=== PATIENT | female | born 1985 | race American Indian/Alaskan Native ===

== ENCOUNTER 2017-02-24 20:04 | Emergency (ER) | payer MEDICAID ==
[~2017-02-24] VITALS: Ht 170.2 cm; Wt 107.5 kg
[~2017-02-24 20:04] MED LIST: IBUP-1222 PO; OXYC-302 PO
[2017-02-24 20:27] VITALS: BP 136/89
[2017-02-24] MEDS ORDERED: IBUPROFEN 200 MG TABLET ONE (20:56)
[2017-02-24] MEDS ORDERED: IBUPROFEN 200 MG TABLET PO ONE (21:00)
== END 2017-02-24 22:24 | disposition home or self-care (01) ==
LOC: ED 22:23
DX: S62.647A Nondisplaced fracture of proximal phalanx of left little finger, initial encounter for closed fracture (principal); W01.0XXA Fall on same level from slipping, tripping and stumbling without subsequent striking against object, initial encounter; Y93.89 Activity, other specified; Y92.89 Other specified places as the place of occurrence of the external cause; Y99.8 Other external cause status
CPT/HCPCS: 29125

== ENCOUNTER 2019-05-20 16:04 | Inpatient (IN) | payer MEDICAID, OTHER ==
[~2019-05-20] VITALS: Ht 170.2 cm; Wt 115.8 kg
--- NOTE | 2019-05-20 17:05 | NUR ---
FROM LOBBY TO ROOM NOW
--- NOTE | 2019-05-20 17:11 | NUR ---
PT ARRIVED TO ROOM 18 AMBULATORY WITH FAMILY. PT DRESSED IN GOWN, ATTACHED TO MONITOR. PT C/O ABDOMINAL AND BACK/FLANK PAIN. PT ALSO STATES "I SWALLOWED [employer] WATER ON SUNDAY AND I HAVE BEEN NAUSEOUS AND VOMITTING SINCE." PT AOO X 4, MUCOUS MEMBRANES MOIST, ROOM AIR, VSS, RESTING IN GURNEY WITH SIDERAILS X [address], CALL LIGHT WITHIN REACH, FALL PRECAUTIONS IN PLACE.
--- NOTE | 2019-05-20 17:12 | NUR ---
PT DEMANDING BLANKET, SHOUTING LOUDLY, VERY RESTLESS IN BED, ASKING FAMILY MEMBER TO ASK ANOTHER STAFF MEMBER TO GET A BLANKET BECAUSE "YOU AREN'T DOING IT FAST ENOUGH."
[2019-05-20] MEDS ORDERED: DIPHENHYDRAMINE 50 MG/ML, 1ML IVPush ONE (17:30)
[2019-05-20] MEDS ORDERED: SODIUM CHLORIDE FLUSH 10ML SYR IVF ONE (17:30)
[2019-05-20] MEDS ORDERED: ONDANSETRON 2MG/ML, 2ML IVPush ONE (17:30)
[2019-05-20] MEDS ORDERED: FAMOTIDINE 20 MG/2 ML IVP ONE (17:30)
--- NOTE | 2019-05-20 17:30 | NUR ---
PIV ESTABLISHED, LABS DRAWN.
[2019-05-20 17:50] LABS: BASOPHILS # (AUTO) 0.02 x10^3/uL (0-0.1); BASOPHILS % (AUTO) 0 % (0-1); EOSINOPHILS % (AUTO) 0 % (1-7); LYMPHOCYTES # (AUTO) 2.08 x10^3/uL (1-3.4); LYMPHOCYTES % (AUTO) 22 % (22-44); MD NO; MEAN CORPUSCULAR HEMOGLOBIN 36.6 pg (27.0-34.8); MEAN CORPUSCULAR VOLUME 107.7 fL (80-100); MEAN PLATELET VOLUME 8.5 fL (7.4-10.4); MONOCYTES # (AUTO) 0.72 x10^3/uL (0.2-0.8); MONOCYTES % (AUTO) 7 % (2-9); NEUTROPHILS # (AUTO) 6.83 x10^3/uL (1.8-6.8); NEUTROPHILS % (AUTO) 71 % (42-75); PLATELET COUNT 306 x10^3/uL (130-400); RED BLOOD COUNT 4.42 x10^6/uL (3.82-5.3); RED CELL DISTRIBUTION WIDTH 15.2 % (9.6-15.2)
[2019-05-20 18:00] LABS: ALANINE AMINOTRANSFERASE 30 U/L (12-78); ANION GAP 12 mmol/L (5-15); CALCIUM 9.3 mg/dL (8.5-10.1); CHLORIDE 99 mmol/L (98-107); CREATININE 0.88 mg/dL (0.55-1.02)
[2019-05-20 18:04] LABS: ALKALINE PHOSPHATASE 93 U/L (45-117); BILIRUBIN,TOTAL 1.7 mg/dL (0.2-1.0); TOTAL PROTEIN 7.7 g/dL (6.4-8.2)
[2019-05-20] MEDS ORDERED: FAMOTIDINE 20 MG/2 ML ONE (18:08)
[2019-05-20] MEDS ORDERED: DIPHENHYDRAMINE 50 MG/ML, 1ML ONE (18:08)
[2019-05-20] MEDS ORDERED: ONDANSETRON 2MG/ML, 2ML ONE (18:08)
--- NOTE | 2019-05-20 18:16 | NUR ---
PT AMBULATORY TO RESTROOM WITH STEADY GAIT FOR UA.
[2019-05-20 18:48] LABS: MICROSCOPIC AUTO
[2019-05-20] MEDS ORDERED: MAGNESIUM OXIDE 400 MG TABLET ONE (18:50)
[2019-05-20] MEDS ORDERED: POTASSIUM CHLORIDE 20 MEQ TAB.ER.PRT ONE (18:50)
[2019-05-20 18:53] LABS: CULTURE INDICATED? YES
--- NOTE | 2019-05-20 18:54 | NUR ---
PT MEDICATED PER MD ORDER.
[2019-05-20] MEDS ORDERED: MAGNESIUM OXIDE 400 MG TABLET PO ONE (19:00)
[2019-05-20] MEDS ORDERED: POTASSIUM CHLORIDE 10% 40 MEQ/30 ML UDC PO ONE (19:00)
[2019-05-20] MEDS ORDERED: MAGNESIUM OXIDE 400 MG TABLET PO SCH (19:00)
[2019-05-20] MEDS ORDERED: POTASSIUM CHLORIDE 20 MEQ TAB.ER.PRT PO ONE (19:00)
[2019-05-20] MEDS ORDERED: METOCLOPRAMIDE 5 MG/ML, 2ML ONE (19:07)
--- NOTE | 2019-05-20 19:10 | NUR ---
THIS RN CALLED TO ROOM, PT VOMITTING. PA NOTIFIED, PLAN TO ADMIT. PT UPDATED ON POC AND AGREEABLE TO ADMISSION.
--- NOTE | 2019-05-20 19:18 | NUR ---
MEDICATION REQUESTED FROM PHARMACY.
[2019-05-20] MEDS ORDERED: POTASSIUM CHLORIDE 40 MEQ in SODIUM CHLORIDE 0.9% 1,000 ML IV ONE (19:29)
[2019-05-20] MEDS ORDERED: METOCLOPRAMIDE 5 MG/ML, 2ML IVPush ONE (19:30)
[2019-05-20] MEDS ORDERED: POTASSIUM CHLORIDE 40 MEQ in SODIUM CHLORIDE 0.9% 500 ML IV ONE (19:30)
--- NOTE | 2019-05-20 20:04 | NUR ---
PT TAKEN TO CT
[2019-05-20] MEDS ORDERED: OMNIPAQUE 350 MG/ML, 100ML BOTTLE ONE (20:10)
[2019-05-20] MEDS ORDERED: MAGNESIUM SULFATE 1 GM/2 ML IVPush ONE (20:30)
[2019-05-20] MEDS ORDERED: MAGNESIUM SULFATE PMX 2GM/50ML 50 ML ONE (20:46)
--- NOTE | 2019-05-20 20:58 | NUR ---
PT MEDICATED PER MD ORDER, RESTING IN [facility]. SM AT BEDSIDE.
[2019-05-20] MEDS ORDERED: SODIUM CHLORIDE FLUSH 10ML SYR IVF PRN (21:00)
[2019-05-20] MEDS ORDERED: MAGNESIUM SULFATE 1 GM in SODIUM CHLORIDE 0.9% 50 ML IV ONE (21:00)
[2019-05-20] MEDS ORDERED: ACETAMINOPHEN 325 MG TABLET PO PRN (21:30)
[2019-05-20] MEDS ORDERED: DOCUSATE 100 MG CAPSULE PO PRN (21:30)
[2019-05-20] MEDS ORDERED: DIPHENHYDRAMINE 50 MG/ML, 1ML IVPush PRN (21:30)
[2019-05-20] MEDS ORDERED: ENOXAPARIN 40 MG/0.4 ML SQ SCH (21:30)
[2019-05-20 22:15] LABS: AMPHETAMINE SCREEN, URINE Negative (Negative); BARBITURATE SCREEN, URINE Negative (Negative); BENZODIAZEPINE SCREEN, URINE Negative (Negative); CANNABINOID SCREEN, URINE Positive (Negative); COCAINE SCREEN, URINE Negative (Negative); METHADONE SCREEN, URINE Negative (Negative); OPIATE SCREEN, URINE Positive (Negative)
[2019-05-20] MEDS: PANTOPRAZOLE 40 MG IV IVPush SCH (22:26)
[2019-05-20 23:12] VITALS: BP 154/105
[2019-05-21] MEDS: NS + 40MEQ KCL 1,000 ML IV SCH ×2 (00:55→09:10)
[2019-05-21 02:25] VITALS: BP 106/60
[2019-05-21 05:24] LABS: ANION GAP 6 mmol/L (5-15); CALCIUM 8.2 mg/dL (8.5-10.1); CHLORIDE 108 mmol/L (98-107); CREATININE 0.79 mg/dL (0.55-1.02)
[2019-05-21 05:31] LABS: BASOPHILS # (AUTO) 0.02 x10^3/uL (0-0.1); BASOPHILS % (AUTO) 0 % (0-1); EOSINOPHILS # (AUTO) 0.01 x10^3/uL (0-0.4); EOSINOPHILS % (AUTO) 0 % (1-7); LYMPHOCYTES # (AUTO) 1.69 x10^3/uL (1-3.4); LYMPHOCYTES % (AUTO) 23 % (22-44); MD NO; MEAN CORPUSCULAR HEMOGLOBIN 35.8 pg (27.0-34.8); MEAN CORPUSCULAR HGB CONC 33.6 g/dL (32.4-35.8); MEAN CORPUSCULAR VOLUME 106.6 fL (80-100); MEAN PLATELET VOLUME 8.1 fL (7.4-10.4); MONOCYTES % (AUTO) 8 % (2-9); NEUTROPHILS # (AUTO) 4.93 x10^3/uL (1.8-6.8); NEUTROPHILS % (AUTO) 68 % (42-75); PLATELET COUNT 261 x10^3/uL (130-400); RED BLOOD COUNT 4.23 x10^6/uL (3.82-5.3); RED CELL DISTRIBUTION WIDTH 15.1 % (9.6-15.2)
[2019-05-21 07:40] VITALS: BP 131/88
[2019-05-21] MEDS: PANTOPRAZOLE 40 MG IV IVPush SCH (09:10)
[2019-05-21 10:58] LABS: THYROID STIMULATING HORMONE 0.876 mIU/L (0.358-3.740)
[2019-05-21 12:40] VITALS: BP 115/75
[2019-05-21] MEDS ORDERED: ERGO500017 PO (14:09)
== END 2019-05-21 17:30 | disposition home or self-care (01) | DRG 392 ==
LOC: ED 19:31 → EDIP 22:20 → 3NE 22:30
PROVIDERS: ADMIT Family Medicine; ATTEND Family Medicine
DX: K31.89 Other diseases of stomach and duodenum (principal); Z68.41 Body mass index [BMI] 40.0-44.9, adult; R11.2 Nausea with vomiting, unspecified; D75.89 Other specified diseases of blood and blood-forming organs; E55.9 Vitamin D deficiency, unspecified; E66.01 Morbid (severe) obesity due to excess calories; E86.0 Dehydration; E87.6 Hypokalemia; F12.90 Cannabis use, unspecified, uncomplicated; K43.9 Ventral hernia without obstruction or gangrene; M51.37 Other intervertebral disc degeneration, lumbosacral region; Z87.891 Personal history of nicotine dependence; A08.4 Viral intestinal infection, unspecified
CPT/HCPCS: 36415; 99285; J3490; 74177; 80048; 80053; 80307; 81001; 82306; 82607; 83690; 83735; 84132; 84443; 84703; 85025; 87086; 96365; 96375; G0378; J1650; J2405; J3475; J3480; Q9967; C9113; J1200; J2765; J7040

== ENCOUNTER 2020-06-13 19:56 | Emergency (ER) | payer MEDICAID ==
[~2020-06-13] VITALS: Ht 170.2 cm; Wt 116.2 kg
[~2020-06-13 19:56] MED LIST changes: +ERGO500017 PO
[2020-06-13] MEDS ORDERED: OXYcodone/APAP 5/325MG TABLET ONE (20:26)
[2020-06-13] MEDS ORDERED: KETOROLAC 60 MG/2 ML ONE (20:26)
[2020-06-13] MEDS ORDERED: KETOROLAC 30 MG/1 ML IM ONE (20:30)
[2020-06-13] MEDS ORDERED: OXYcodone/APAP 5/325MG TABLET PO ONE (20:30)
--- NOTE | 2020-06-13 21:38 | NUR ---
PT REPORTS PAIN IMPROVEMENT. UP FOR RECHECK AT THIS TIME
--- NOTE | 2020-06-13 21:55 | NUR ---
REPORT FROM KIMBERLI HANSON.
[2020-06-13 22:19] VITALS: BP 138/102
== END 2020-06-13 22:37 | disposition home or self-care (01) ==
LOC: ED 22:35
DX: S63.521A Sprain of radiocarpal joint of right wrist, initial encounter (principal); S40.011A Contusion of right shoulder, initial encounter; S50.01XA Contusion of right elbow, initial encounter; W18.30XA Fall on same level, unspecified, initial encounter; Y93.89 Activity, other specified; Y92.89 Other specified places as the place of occurrence of the external cause; Y99.8 Other external cause status
CPT/HCPCS: 29240; 73030; 73080; 73110; 96372; 99284; J1885

== ENCOUNTER 2020-07-19 09:30 | Emergency (ER) | payer MEDICAID ==
[~2020-07-19] VITALS: Ht 170.2 cm; Wt 112.9 kg
--- NOTE | 2020-07-19 10:20 | NUR ---
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 NADN. PT AMBULATORY WITH STEADY GAIT
--- NOTE | 2020-07-19 10:25 | NUR ---
PT TO ED WITH SORE THROAT/HOARSE VOICE AFTER WORKING IN SMOKE YESTERDAY. PT AMBULATED TO ROOM WITH STEADY GAIT. PT PLACED ON MONITOR. COVID SWAB AND CXR DONE.
[2020-07-19 12:13] VITALS: BP 130/72
--- NOTE | 2020-07-20 17:04 | NUR ---
PER LAB, UNABLE TO RUN PT COVID SWAB DUE TO LEAKAGE DURING TRANSIT.
== END 2020-07-19 12:39 | disposition home or self-care (01) ==
LOC: ED 10:45
DX: B34.9 Viral infection, unspecified (principal); J04.0 Acute laryngitis
CPT/HCPCS: 36415; 71046; 87081; 87635; 87880; 99284